=== PATIENT | male | born 1980 | race Two or more races ===

== ENCOUNTER 2024-03-16 20:02 | Inpatient (IN) | payer OTHER, SELFPAY ==
[2024-03-16] VITALS (12 sets, daily range): BP systolic 99–139; BP diastolic 55–72; BMI 26.0; BMI 25.3
--- NOTE | 2024-03-16 17:39 | ED.GENMED ---
History of Present Illness
General
Chief Complaint: Breathing Problem
Source: patient
Time Seen by Provider: 03/16/24 17:15
History of Present Illness
History of Present Illness:
43-year-old male presents to emergency room as a transfer from [facility]. Patient had a open reduction internal fixation of a left index finger fracture. Reportedly the procedure was uncomplicated. The induction of anesthesia
and anesthesia during the procedure was uncomplicated reportedly. Postextubation however the patient was hypoxic. It appears he was treated with nebs without improvement. Patient arrives on 6 L nasal cannula oxygen. The oxygen was briefly
removed to transfer him to the stretcher and he desatted to 82%. Patient states he has no known medical problems. He ran 2 miles yesterday without feeling significant difficulty. Patient denies any chest pain. He had anesthesia once in the past
without any difficulties. Patient denies having any recent fever, chills, cough.
Phy Exam
Physical Exam
Physical Exam:
General: Awake, Alert, Oriented X3. Increased work of breathing
Vitals: Hypoxic, tachypneic
Head: Atraumatic
Eyes: Pupils equal, EOMI
Throat: Airway intact, no exudates
Neck: Trachea midline
Lungs: Diffuse crackles
Heart: Tachycardic regular rate, no murmurs
Abd: Soft, Nontender, No pulsatile mass
Neuro: Nonfocal
Skin: Warm, dry, no rash
Extremities: pulses equal b/l, no edema
Course
Orders/Labs/Results
Orders:
Orders
03/16/24 Dinner
Cholesterol Lowering
At Your Request: Full Participation
Does patient need a safe tray?: No
Cholesterol Lowering: Sodium, 2 Gram
03/16/24 16:39
Chest [CR Chest - 2 Views ] Urgent
Comment:
Reason For Exam: SOB
03/16/24 17:29
Furosemide [Lasix] 40 mg IV NOW STA
03/16/24 17:31
CT Chest W/o Iv Contrast Urgent
Comment:
Reason For Exam: hypoxia, abnormal cxr
03/16/24 17:44
COVID-19 Antigen Urgent
Source: Nasal Swab
Complete Blood Count/No Diff Urgent
Comprehensive Metabolic Panel Urgent
NT-proBNP Urgent
Troponin I Urgent
03/16/24 18:29
Piperacillin/Tazo 4.5 Gram [Zosyn] 4.5 gram in 100 ml IV NOW
03/16/24 19:20
Admit/Transfer Patient As Directed
Co-Sign Provider:
Level of Care: Inpatient admission
Assign to:: IMU- Intermediate Care
Physician / Group: hospitalist
Diagnosis: acute pulmonary edema
Reason for Hospitalization: hypoxic respiratory failure
Expected length of stay greater than two midnights?: Yes
ELOS- Estimated Length of Stay in days: 2
I certify the patient meets the requirements for IP care: Yes
PRN Pain Medication Management As Directed
May give lesser potent ordered pain med per pt: Yes
preference::
Protocol:: Medication orders for pain may be administered in a
manner that supports deferring to patient preference
when the pt is:
- Requesting an ordered lesser potent pain medication.
Least to most potent pain medications are defined
as: acetaminophen < NSAID < tramadol < opioids
(morphine, oxycodone, hydromorphone).
- Requesting a lesser dose of the same medication IF
ORDERED.
- Requesting a less intrusive route of administration
if both routes are prescribed by the provider (PO <
IV).
03/16/24 19:21
Code Status As Directed
Resuscitation Status: Full Code
03/16/24 21:48
Acetaminophen [Tylenol] 650 mg PO Q6HPRN PRN
Guaifenesin/Codeine Solution [Robitussin AC] 10 ml PO Q4HPRN PRN
Ipratropium/Albuterol Sulfate [Duoneb] 3 ml INH R Q4HPRN PRN
Ondansetron Injectable [Zofran] 4 mg IV Q6HPRN PRN
03/16/24 21:48
PULMONARY CONSULT Routine
Consulting Provider: Pedro Marx
Was physician already notified: Yes
Reason for consult: acute pulmonary edema
Activity As Directed
Activity Level: With Assistance
Intake/ Output As Directed
Frequency: Per unit guidelines
Patient Education As Directed
Type: CHF folder
Comment: give on admission. Document in Interdisciplinary Education record
Sleep Apnea Assessment by RN As Directed
Comment:
Physician Instructions:
Vital Signs As Directed
Frequency: Other
Additional Instructions:: Q12 or per unit guidelines if more frequent.
Weight As Directed
Frequency: Daily
Type of Scale: Standing Scale
Comment: Daily morning weight. If unable to stand, use balanced bed scale.
Weight As Directed
Frequency: Once
Type of Scale: Standing Scale
Comment: Upon Admission. If unable to stand, use balanced bed scale.
High Flow Oxygen Therapy [O2 Therapy] [RESP] Routine
High Flow Nasal Cannula FIO2%: 50
High Flow Nasal Cannula Liter Flow: 50
Titrate/Wean O2 to maintain O2 sat greater than (%): 95
Pulse Ox/cont/shift [RESP] Routine
Quantity: 1
Special Instructions: Daily pulse oximetry at rest. If greater than 92% at rest also obtain pulse oximetry
while ambulating as tolerated.
DX Deep Vein Thrombosis Video Routine
03/17/24 00:00
Piperacillin/Tazo 3.375 Gram [Zosyn] 3.375 gram in 50 ml IV Q6H
03/17/24 06:00
Echo 2D MMode Color/Doppler IN AM
Reason for Study: heart failure
Basic Metabolic Panel IN AM
Magnesium IN AM
Procalcitonin IN AM
PCT Algorithmm Indication: Respiratory
03/17/24 08:00
Furosemide [Lasix] 40 mg IV BID AT 0800,1600
03/17/24 18:00
Enoxaparin Sodium [Lovenox] 40 mg SC QPM
03/18/24 06:00
Basic Metabolic Panel IN AM
03/19/24 06:00
Basic Metabolic Panel IN AM
Abnormal Lab Results
03/16/24
17:44
WBC 18.1 H 10^3/uL
(4.8-10.8)
MPV 11.2 H fL
(7.4-10.4)
Carbon Dioxide 15 L mmol/L
(22-30)
Glucose 151 H mg/dl
(70-99)
03/16/24 17:44
03/16/24 17:44
Vital Signs
Initial and Last Documented VS:
Initial Vital Signs
BP
128/65
03/16/24 16:33
Last Documented Vital Signs
Temp Pulse Resp BP Pulse Ox
99.1 F 112 23 114/72 95
03/16/24 22:00 03/16/24 21:00 03/16/24 21:00 03/16/24 21:00 03/16/24 22:01
MDM/Problems Addressed
Differential Diagnosis Includes:
ARDS, fluid overload, neg pressure pulmonary edema, aspiration
MDM/Problems Addressed:
Patient presents with pressure distress after an outpatient operation. Patient is oxygenating with a significant amount of supplemental oxygen. Shortly after arrival patient placed on high flow oxygen. This significantly alleviated his work of
breathing and he is oxygenating very well initially on 60% at 50 L/min. Chest x-ray shows diffuse parenchymal infiltrates which to me suggests a noncardiogenic pulmonary edema. Radiology interpreted the chest x-ray is multifocal pneumonia. A CT
of the chest was performed with a similar interpretation. My suspicion for infection is quite low however as the patient was jogging 2 miles yesterday and went to the surgery center feeling 100% normal. Seems much more likely that this is some
sort of adverse response to anesthesia or the postanesthesia phase. We did cover the patient with a dose of Zosyn in case he did aspirate.
*Radiology
Radiology exam reviewed: preliminary read by ED provider (Diffuse pulmonary infiltrate, no effusion)
*Pulse Oximetry
Patient hypoxic: yes
*EKG
Interpreted by ED Provider?: Yes
Interpretation: abnormal
Heart Rate: 121
Rate: tachycardiac
Rhythm: sinus
[place]: normal axis
Interval: normal interval
QRS Pattern: normal QRS
Ischemia: non-specific ST changes
*[employer] Interpretation
Rate: tachycardiac
Interpretation: abnormal
Rhythm: sinus tachycardia
*Critical Care Note
Total Time (30-74mins, 75-104mins- exclusive of procedures): 40 min
ED Attending Note
-
Portions of this chart may have been created with voice recognition software.� Occasional wrong word or��sound alike� substitutions may have occurred due to the inherent limitations of voice recognition software.
Discharge Plan
Departure
Patient Disposition: Admit
Date of Disposition: 03/16/24
Time of Disposition: 18:32
Admit to: IMU
Presentation/result/management discussed w/ accepting MD/DO: Hospitalist
Condition: Fair
Discharge Problem:
Acute non-cardiogenic pulmonary edema, Respiratory failure
Interventions
Interventions:
*Risk Screen - Suicide Last Done: 03/16/24 16:34
*General Assessment Last Done: 03/16/24 16:34
*Neglect/Abuse Screening Last Done: 03/16/24 16:34
ED- Fall Risk Assessment Last Done: 03/16/24 16:53
*Nursing Disposition Last Done: 03/16/24 21:40
ED- Cardiac Assessment Last Done: 03/16/24 16:53
ED- Pulmonary Assessment Last Done: 03/16/24 16:53
Discharge Date and Time
Discharge Date/Time: 03/16/24 21:42
[2024-03-16] MEDS: LASIX 40 MG IV (17:51)
[2024-03-16 17:56] LABS: Hematocrit 44.5 % (39.0-52.0); Hemoglobin 14.9 g/dL (13.0-18.0); Mean Corp Hgb Conc. 33.5 g/dL (33.0-37.0); Mean Corpuscular Volume 80.8 fL (80.0-94.0); Mean Platelet Volume 11.2 fL (7.4-10.4); Platelet Count 240 10^3/uL (130-400); Red Blood Cell Count 5.51 10^6/uL (4.70-6.10); Red Cell Dist. Width 13.1 % (11.5-14.5); White Blood Cell Count 18.1 10^3/uL (4.8-10.8)
[2024-03-16 18:13] LABS: AST (SGOT) 32 U/L (17-59); Albumin 4.2 g/dl (3.5-5.0); Alkaline Phosphatase 77 U/L (38-126); Blood Urea Nitrogen 13 mg/dl (9-20); Calcium 8.8 mg/dl (8.4-10.2); Carbon Dioxide 15 mmol/L (22-30); Chloride 106 mmol/L (98-107); Estimated Creatinine Clearance 112 ml/min; Glucose 151 mg/dl (70-99); Potassium 4.4 mmol/L (3.5-5.1); Sodium 140 mmol/L (135-145); Total Bilirubin 0.7 mg/dl (0.2-1.3); Total Protein 7.2 g/dl (6.3-8.2); eGFR > 60.00
[2024-03-16 18:20] LABS: NT-proBNP < 20.0 pg/ml; Troponin I < 0.012 ng/ml
[2024-03-16 18:43] LABS: COVID-19 Antigen Negative (Negative)
[2024-03-16] MEDS: ZOSYN 100 IV (18:47)
[2024-03-16 18:49] LABS: ALT (SGPT) 30 U/L (0-50)
--- NOTE | 2024-03-16 19:09 | HPS.HSE ---
Family Physician
-
Family Physician: LINDSAY Hargrove
Chief Complaint
-
Shortness of breath
History of Present Illness
This is a 43-year-old with no known significant past medical history of family history who presents to the Emergency Department with acute pulmonary edema following outpatient surgery.
Patient had a scheduled procedure for a left index metatarsal fracture repair. He was feeling well prior to the procedure. He actually ran about 2 miles the day before without feeling short of breath or having any chest pain. He denied have any
cough fevers or chills prior to this episode. Denies any rash. Denies any recent travels or sick contacts. Patient remembers going into the surgical suite feeling well and then had a report that he had hypoxia to 60 and apneic episode that
required continued ventilatory support. He was successfully extubated to supplemental oxygen and then sent to the emergency department. Patient reports prior episodes of anesthesia without any complication. He also reported that he received a
tyson-procedural antibiotic but was unclear of the form. Has no known abx allergies. Did not notice any rash, wheezing or hypotension.
In the ED he was afebrile he was hemodynamically stable with tachycardic to the 128. Respiratory was 35 with oxygen saturation of 95% on high flow. The mostly unremarkable with a normal BUN/creatinine. White count was 18 rest of the CBC was
unremarkable. Chest x-ray shows diffuse interstitial opacities throughout the lung tapia without pleural effusions. CT of the chest consistent with diffuse bilateral multifocal pneumonia.
Medical History
Past Medical History
Past Medical History: Reports None
Past Surgical History: Reports Orthopedic
Social History
Tobacco: Former Smoker
Alcohol: None
Drug: None
Personal:
Living: With Family
Employment: Employed
Family History
Family History: Not pertinent
Allergies / Home Medications
Allergies reflects when Allergies were last updated in [employer].
Home Medications with original date entered in [employer]
Allergy/Medication List:
Allergies
Allergy/AdvReac Type Severity Reaction Status Date / Time
No Known Allergies Allergy Unverified 03/16/24 16:34
Home Medications
therapeutic multivitamin 1 tab PO DAILY 03/16/24
Review of Systems
-
History Source: Patient
Constitutional: Reports No Symptoms
EENT: Reports No Symptoms
Respiratory: Reports Trouble Breathing
Cardiac: Reports No Symptoms
Abdomen/GI: Reports No Symptoms
: Reports No Symptoms
Musculoskeletal: Reports No Symptoms
Skin: Reports No Symptoms
Neurological: Reports No Symptoms
Endocrine: Reports No Symptoms
Hematologic/Lymphatic: Reports No Symptoms
Psych: Reports No Symptoms
Physical Exam
Vital Signs
Vital Signs
Temp Pulse Resp BP Pulse Ox
98.2 F 118 32 112/65 99
03/16/24 16:50 03/16/24 18:45 03/16/24 18:45 03/16/24 18:30 03/16/24 18:55
Physical Exam
General: Conversant and Respiratory Distress
HEENT: NormoCephalic, Anicteric, Moist mucous membranes, Atraumatic and PERRLA
Respiratory: Clear
Cardiac: S1/S2, Regular Rhythm and Tachycardia
Breast: Deferred by me
GI: Soft, Non Tender, Non Distended and No Hepatosplenomegaly
Rectal: Deferred by Provider
Genito-urinary: Deferred by me
Musculoskeletal: No Clubbing, No Cyanosis and No Edema
Neuro: AO x 3
Hematologic/Lymphatic: No Lymphadenopathy
Psych: Calm
Laboratory Results
-
03/16/24 17:44
03/16/24 17:44
Laboratory Results
Total Bilirubin 0.7 mg/dl (0.2-1.3) 03/16/24 17:44
AST 32 U/L (17-59) 03/16/24 17:44
ALT 30 U/L (0-50) 03/16/24 17:44
Alkaline Phosphatase 77 U/L (38-126) 03/16/24 17:44
Troponin I < 0.012 ng/ml 03/16/24 17:44
Data Reviewed
-
Diagnostic Radiology: Image Personally Visualized and interpreted
CT Scan: Report Reviewed by me
Medical Tests (Nuc Med, Echo, EKG etc): Image Personally Visualized and interpreted
Lab Data: Labs Reviewed by me
Old Records: Reviewed
Impression/Plan
-
IMPRESSION:
This is a 43-year-old male with no known segment past medical history presenting to the emergency department with acute pulmonary edema subsequent to general anesthesia for a orthopedic surgical procedure in the outpatient setting. Patient denies
any prior symptoms prior to presentation. He is otherwise hemodynamically stable, ECG with sinus tachycardia, troponin is negative, BNP is negative, chest x-ray with bilateral interstitial infiltrates throughout the lung tapia, CT chest also
consistent with diffuse bilateral multifocal pneumonia.
PLAN:
Pulmonary Edema/ARDS - Non-cardiogenic pulmonary edema. Possibly Iatrogenic hypervolemic (flash pulm edema from aggressive IVF). BNP is negative. No JVD, peripheral edema or enlarged heart. Possibly secondary to pneumonitis in the setting of
aspiration or or hypersensitivity to anesthesia. Unlikely secondary to antibiotic. The patient has no evidence of 4 heart failure by labs or exam but cannot rule out valvular abnormality. No wheezing or evidence of bronchospasms. Leukocytosis
noted.
- admit to imu
- continue hi - cl 60% at 50 L, titrate to maintain sat > 95 %
- lasix helped significantly in ED, continue with 40mg iv q 12 for now till oxygenation improved to NC or evidence of renal impact
- if no improvement with lasix, will start decadron
- cannot rule out aspiration pneumonitis but unlikely pneumonia, patient recieved zosyn in ED, denies pcn allergies. Will continue prn zosyn. Check procalcitonin
- echo in am, check a1c and lipid panel
- fluid and salt restriction for now.
- supportive care with antitussives, antiemetics and pain control
- pulm consulted
DVT PPX - lovenox sq
Full Code
[2024-03-16] MEDS: TYLENOL 650 MG PO (22:09)
[2024-03-17] VITALS (8 sets, daily range): BP systolic 116–132; BP diastolic 63–82; BMI 25.0
[2024-03-17] MEDS: ZOSYN 50 IV ×5 (00:02→23:06)
[2024-03-17] MEDS: ROXICODONE 5 MG PO ×3 (00:36→10:28)
[2024-03-17 05:51] LABS: Blood Urea Nitrogen 17 mg/dl (9-20); Calcium 8.5 mg/dl (8.4-10.2); Carbon Dioxide 26 mmol/L (22-30); Chloride 101 mmol/L (98-107); Estimated Creatinine Clearance 100 ml/min; Glucose 132 mg/dl (70-99); Magnesium 1.8 mg/dl (1.6-2.3); Sodium 138 mmol/L (135-145); eGFR > 60.00
[2024-03-17 06:11] LABS: Procalcitonin 6.16 ng/ml (0.0-0.25)
--- NOTE | 2024-03-17 06:19 | PTCARENOTE ---
Critical lab received, procalcitonin 6.16. House provider notified via TT.
--- NOTE | 2024-03-17 08:50 | CON.PUL ---
Consultation
Consultation Request
Date/Time Consultation Requested: 03/17/24
Date/Time Consultation Performed: 03/17/24
Performing Provider: Isaias
Reason for Consultation: SOB
Medical History
-
History of Present Illness:
Patient is a 43-year-old male with no significant past history presenting to ER for perioperative hypoxemia and apneic episode requiring ventilatory support. He underwent elective scheduled repair of left index metatarsal fracture, was noted to
have difficulty with oxygenation throughout procedure. He was successfully extubated and placed on supplemental oxygen and then sent to the ER. He denies any prior history of cardiac or pulmonary disease, was in good health prior to the procedure.
In the ER, he was notably tachycardic to 128 with respiratory rate of 35 and placed on high flow nasal cannula. Chest x-ray and CT demonstrating diffuse bilateral infiltrates. He has an white count of 18. Admitted to IMU.
Past Medical History
Past Medical History: None
Past Surgical History: Orthopedic
Social History
Tobacco: Non-smoker
Alcohol: None
Drug: None
Family History
Family History: Reviewed & Not Pertinent
Allergies / Home Medications
Allergies
Allergy/AdvReac Type Severity Reaction Status Date / Time
No Known Allergies Allergy Unverified 03/16/24 16:34
Home Medications
�Medication �Instructions �Recorded �Confirmed �Last Taken �Type
therapeutic multivitamin 1 tab PO DAILY Supplement 03/16/24 03/16/24 Unknown History
Review of Systems
-
History Source: Patient
All other systems: Negative unless noted
Vitals / Labs / Diagnostic Testing
Vital Signs
Temp Pulse Resp BP Pulse Ox
98 F 95 20 121/67 100
03/17/24 07:10 03/17/24 07:30 03/17/24 07:30 03/17/24 04:00 03/17/24 08:15
Lab Data
03/16/24 17:44
03/17/24 05:26
Diagnostic Testing:
Physical Exam
-
HEENT: Normocephalic, Anicteric and Moist Mucous Membranes
Cardiovascular: S1/S2 and Regular Rhythm
Respiratory: Clear and Non-Labored Respirations
GI: Soft, Non Distended and Non Tender
Neurology: Awake, Alert, Oriented, AO x 3 and No Motor Deficits
Skin: Warm, Dry and Good Color
General: Comfortable and Other (NAD)
Assessment
-
Patient is a 43-year-old male with no significant past history presenting to ER for perioperative hypoxemia and apneic episode requiring ventilatory support. He underwent elective scheduled repair of left index metatarsal fracture, was noted to
have difficulty with oxygenation throughout procedure. He was successfully extubated and placed on supplemental oxygen and then sent to the ER. He denies any prior history of cardiac or pulmonary disease, was in good health prior to the procedure.
In the ER, he was notably tachycardic to 128 with respiratory rate of 35 and placed on high flow nasal cannula. Chest x-ray and CT demonstrating diffuse bilateral infiltrates. He has an white count of 18. Admitted to IMU. We are consulted for
eval.
Acute hypoxic respiratory failure on HFNC
Acute bilateral infiltrates
Recent intubation/extubation for elective procedure
Leukocytosis
Elevated procal
Plan
Hypoxemia noted on arrival, O2 monty reportedly in 60s
He was placed on HFNC, this was quickly weaned to midflow 10L, satting 100% can likely be weaned further
Reviewed with RT to wean to off as tolerated
Home O2 eval in AM
Prior history of lung disease is not noted
Nonsmoker, has excellent exercise capacity prior to
No prior PFT for review
CXR/CT obtained indicating diffuse bilateral infiltrates
Suspect patient has acute PNA, possible aspiration through procedure
Given apneas, would complete sleep study as well
Negative pressure pulmonary edema is a possibly diagnostic entity, but proBNP neg, and did not resolve quickly
Given WBC and procal elevation, would favor more PNA
He is placed on empiric abx, continue
Sputum culture if able
Repeat CXR in AM
ECHO results reviewed--normal function
No prior known history of cardiac disease
Will need outpatient pulmonary evaluation in our office for PFTs and 6MWT
Reviewed with patient
Risk factors assessed for underlying sleep disordered breathing also noted, recommend outpatient PSG/sleep evaluation
Updated patient and his family at bedside including cousin on speaker phone (physician)
Family very involved in care, all questions answered
We will follow
Diagnostic Data
Chest X-Ray: 03/16/24- Severe diffuse bilateral interstitial and airspace disease highly suspicious for pneumonia.
CT Scan: CHEST 03/16/24- Severe extensive diffuse bilateral groundglass and tree-in-bud nodules throughout all lobes. Slightly confluent pleural-based consolidation forming in the posterior medial left lower lobe. No pleural effusions, pericardial
effusions or pathologically enlarged noncalcified lymph nodes in the thorax. No pneumothorax.
Echo: 03/17/24- 1. Left ventricle: Normal size and function. The estimated ejection fraction
is 60%. No regional wall motion abnormalities.
2. Right ventricle: Normal
3. Atria: Normal
4. Mitral valve: No mitral regurgitation
5. Aortic valve: Trileaflet. No aortic stenosis or aortic insufficiency
6. Tricuspid valve: Normal
7. No prior studies for comparison
PFT's:
Reports and relevant images were personally reviewed.
Total time spent on this consultation __80__ includes review of history, physical exam, medications, laboratory data, personal review of imaging, extensive review of outpatient records, discussion with care team and respiratory therapy.
[2024-03-17] MEDS: LASIX 40 MG IV ×2 (09:31→17:51)
[2024-03-17] MEDS: TYLENOL 650 MG PO ×2 (12:57→21:16)
--- NOTE | 2024-03-17 14:34 | CM ---
Patient who had outpatient surgery 03/16 for left index metatarsal fracture repair with Dx Pulmonary Edema/ARDS. O2 10L midflow. Receiving IV Lasix, IV Abx. Splint/cast and sling right arm.
Met with patient and Sommer;
The patient has been independent in ADLs and ambulation.
The patient has no DME or prior VN.
PCP - Luann Powell
Pharmacy - [facility]– [place], [place]
Message to Dr Lee; request to clarify wt bearing status and activity restrictions, info relayed to Dr Lee:
Spoke with ; their written d/c instructions from the [facility] with Dr Dario Carias, Ortho:
Call [facility] with any problems ph [phone], return to Surgery Center in 10-14 days for suture removal, avoid heavy lifting & gripping.
Plan home.
--- NOTE | 2024-03-17 15:00 | CM ---
Patient who had outpatient surgery 03/16 for left index metatarsal fracture repair with Dx Pulmonary Edema/ARDS. O2 10L midflow. Receiving IV Lasix, IV Abx. Splint/cast and sling right arm.
Met with patient and Sommer;
the patient resides with his in a 2 story house with 3 [address].
The patient has been independent in ADLs and ambulation.
The patient has no DME or prior VN.
PCP - Luann Powell
Pharmacy - [facility] [address] [place]
Message to Dr Lee; request to clarify wt bearing status and activity restrictions, info relayed to Dr Lee:
Spoke with ; their written d/c instructions from the [facility] with Dr Dario Carias, Ortho:
Call [facility] with any problems ph [phone], return to Surgery Center in 10-14 days for suture removal, avoid heavy lifting & gripping.
Plan home.
--- NOTE | 2024-03-17 16:02 | PTCARENOTE ---
Pt presents as assessed. Aox3. NSR on tele monitor. Surgical dressing C/D/I. Transitioned from HFNC to MFNC by RT. Weaning as tolerated. Medicated for pain as needed, see MAR.
--- NOTE | 2024-03-17 16:09 | W.PN.HOSP.TC ---
Today's Communication/Plan
-
wean higlow
contineu atb
do not believe there is a role for steroids
Assessment / Plan
Assessment / Plan
NAD, resting comfortably in bed
Scleral anicteric
Moist mucous membranes
No JVD
Poor air movement/diminished breath sounds on exam.
Normal S1-S2 no murmurs
Soft nontender nondistended bowel sounds active
No peripheral pitting edema
Moves extremities spontaneously, left and bandaged
AAOx3
Acute hypoxemic respiratory failure suspect secondary pneumonia possibly, may be chemical pneumonitis as seizure, noncardiogenic pulmonary edema, hypersensitivity pneumonitis, unlikely heart failure as proBNP negative.
-White count high procalcitonin acutely hypoxic. Possibly aspiration for which at this time we will continue Zosyn.
-Continue Lasix
-Check sputum culture
-Pulmonary following
-Wean high flow nasal cannula to nasal cannula as tolerated and eventually to room air
Sepsis secondary to diffuse bilateral multifocal PNA
-WBC and HR along with RR
-Pulmonary source
-IVAtb with zosyn for now
-Covid Negative
Anticipated Discharge: Within 24 hours
Subjective/Interval History
-
Date of Service: March 17, 2024
Seen and examined. Was on high flow nasal cannula.
Respiratory rate low 20s high teens. With a SpO2 of 100%
Objective Data
-
Labs:
Laboratory Results
03/17/24
05:26
Sodium 138
Potassium 4.0
Chloride 101
Carbon Dioxide 26
BUN 17
Creatinine 1.0
Glucose 132 H
Calcium 8.5
Vital Signs:
Vital Signs
Temp Pulse Resp BP Pulse Ox
98.1 F 100 20 132/81 98
03/17/24 11:13 03/17/24 16:00 03/17/24 16:00 03/17/24 16:00 03/17/24 16:00
I&O
03/16/24 03/17/24 03/18/24
06:59 06:59 06:59
Intake Total 340 / 340
Output Total 200 / 200 600 / 600
Balance 140 / 140 -600 / -600
[2024-03-17] MEDS: LOVENOX SC (17:56)
--- NOTE | 2024-03-17 23:00 | PTCARENOTE ---
Assume care from AM RN. AAOX3 and anxious at times. at bedside. Pt questions were answer. ST to NSR in the monitor. Pt was wean down to 1.5 L and was advice to start walking and taking deep breaths. Pt appears comfortable in bed. pt sates his
pain is manageable. See MAR for pain management. Call [place] within reach.
[2024-03-18] VITALS (11 sets, daily range): BP systolic 111–129; BP diastolic 63–86; BMI 24.9
[2024-03-18] MEDS: ZOSYN 50 IV ×4 (05:24→23:08)
[2024-03-18 05:31] LABS: Hematocrit 41.1 % (39.0-52.0); Hemoglobin 13.6 g/dL (13.0-18.0); Mean Corp Hgb Conc. 33.1 g/dL (33.0-37.0); Mean Corpuscular Hgb 27.3 pg (27.0-31.0); Mean Corpuscular Volume 82.4 fL (80.0-94.0); Mean Platelet Volume 11.1 fL (7.4-10.4); Platelet Count 216 10^3/uL (130-400); Red Blood Cell Count 4.99 10^6/uL (4.70-6.10); White Blood Cell Count 15.9 10^3/uL (4.8-10.8)
[2024-03-18 05:54] LABS: Blood Urea Nitrogen 23 mg/dl (9-20); Calcium 9.3 mg/dl (8.4-10.2); Carbon Dioxide 27 mmol/L (22-30); Chloride 95 mmol/L (98-107); Estimated Creatinine Clearance 91 ml/min; Glucose 111 mg/dl (70-99); Potassium 3.7 mmol/L (3.5-5.1); Sodium 139 mmol/L (135-145); eGFR > 60.00
[2024-03-18] MEDS: LASIX 40 MG IV ×2 (08:45→15:08)
--- NOTE | 2024-03-18 09:47 | W.PN.PUL3 ---
Today's Communication / Plan
-
ABx
Up OOB as tolerated
Walking pulse oximetry for home O2 assessment prior to discharge
Outpatient follow-up and repeat CT chest in about 4 to 6 weeks with outpatient PFTs and sleep apnea testing
Postoperative management as per orthopedic surgery
Advised to follow-up with PCP as well
Assessment
-
Patient is a 43-year-old male with no significant past history presenting to ER for perioperative hypoxemia and apneic episode requiring ventilatory support. He underwent elective scheduled repair of left index metatarsal fracture, was noted to
have difficulty with oxygenation throughout procedure. He was successfully extubated and placed on supplemental oxygen and then sent to the ER. He denies any prior history of cardiac or pulmonary disease, was in good health prior to the procedure.
In the ER, he was notably tachycardic to 128 with respiratory rate of 35 and placed on high flow nasal cannula. Chest x-ray and CT demonstrating diffuse bilateral infiltrates. He has an white count of 18. Admitted to IMU. We are consulted for
eval.
Impression:
Acute hypoxic respiratory failure on HFNC
Acute bilateral infiltrates likely due to aspiration pneumonia
Recent intubation/extubation for elective procedure involving surgery of left index finger
Leukocytosis
Elevated procal
Plan
Hypoxemia noted on arrival, O2 monty reportedly in 60s
He was placed on HFNC, this was quickly weaned to midflow 10L, satting 100% can likely be weaned further
He is now on room air breathing comfortably
Reviewed with RT to wean to off as tolerated
Home O2 eval prior to discharge
Prior history of lung disease is not noted
Nonsmoker, has excellent exercise capacity prior to
No prior PFT for review
CXR/CT obtained indicating diffuse bilateral infiltrates
Suspect patient has acute PNA, possible aspiration through procedure
Given apneas, would complete sleep study as well; he also snores and endorses daytime naps throughout the day
Negative pressure pulmonary edema is a possibly diagnostic entity, but proBNP neg, and did not resolve quickly
Given WBC and procal elevation, would favor more PNA
He is placed on empiric abx, continue --> currently on zosyn
Sputum culture if able
Repeat CXR this morning (03/18/2024) shows improving pneumonia
ECHO results reviewed--normal function
No prior known history of cardiac disease
Will need outpatient pulmonary evaluation in our office for PFTs and 6MWT
Reviewed with patient
Risk factors assessed for underlying sleep disordered breathing also noted, recommend outpatient PSG/sleep evaluation
Updated patient and his family at bedside including cousin on speaker phone (physician)
Family very involved in care, all questions answered
We will follow
Diagnostic Data
Chest X-Ray: 03/16/24- Severe diffuse bilateral interstitial and airspace disease highly suspicious for pneumonia.
CT Scan: CHEST 03/16/24- Severe extensive diffuse bilateral groundglass and tree-in-bud nodules throughout all lobes. Slightly confluent pleural-based consolidation forming in the posterior medial left lower lobe. No pleural effusions, pericardial
effusions or pathologically enlarged noncalcified lymph nodes in the thorax. No pneumothorax.
Echo: 03/17/24- 1. Left ventricle: Normal size and function. The estimated ejection fraction
is 60%. No regional wall motion abnormalities.
2. Right ventricle: Normal
3. Atria: Normal
4. Mitral valve: No mitral regurgitation
5. Aortic valve: Trileaflet. No aortic stenosis or aortic insufficiency
6. Tricuspid valve: Normal
7. No prior studies for comparison
Reports and relevant images were personally reviewed.
Total time spent today was 35 minutes for this encounter. Time includes reviewing laboratory test/imaging results, reviewing pertinent medical records, obtaining and reviewing medical history, performing an appropriate exam, ordering medications,
tests and procedures. Time also includes documentation of this encounter, coordinating patient care and communicating with other healthcare professionals. Total time does not include separately billed tests performed on this date of service.
Subjective Data
-
Date of Service:
Date of Service: March 18, 2024
Chief Complaint: Pulmonary Follow Up and Pneumonia Follow Up
Subjective:
Patient seen and evaluated today at bedside. He is walking around the unit without significant shortness of breath. Also denies chest pain or cough. He does feel SOB when he takes deep breaths. He is net -1.1 L last 24 hours. He is on room air
breathing comfortably. He denies COBURN, abdominal pain, nausea, vomiting, fevers or chills.
Review of Systems
General: Other (Negative unless mentioned above)
Objective Data
Data Reviewed
Vital Signs / I&O / Oxygen:
Vital Signs
Temp Pulse Resp BP Pulse Ox
98.2 F 103 26 113/75 95
03/18/24 07:04 03/18/24 08:45 03/18/24 06:08 03/18/24 08:45 03/18/24 06:10
Intake and Output
03/17/24 03/18/24 03/19/24
06:59 06:59 06:59
Intake Total 340 / 340 820 / 820
Output Total 200 / 200 1950 / 1950 350 / 350
Balance 140 / 140 -1130 / -1130 -350 / -350
SaO2 95
Nasal Cannula flow liters per 1
minute
Physical Exam
General: Respiratory Distress (negative), Comfortable, Chills (negative) and Sweats (negative)
HEENT: Normocephalic and Anicteric
Cardiovascular: S1-S2 and Peripheral Edema (negative)
Respiratory: Wheeze (negative), Crackles (Upper lobes bilaterally), Rhonchi (negative) and Accessory Resp Muscle Use (negative)
GI: Soft, Non Distended, Non Tender and Normal Bowel Sounds
Neurology: AO x 3 and Tremors (negative)
Skin: Warm, Dry and Jaundice (negative)
Labs/Micro/Reports
Lab Data
03/18/24 05:19
03/18/24 05:19
--- NOTE | 2024-03-18 14:05 | W.PN.HOSP.TC ---
Today's Communication/Plan
-
Continue IV Lasix
Continue IV antibiotics
Monitor oxygen
Ambulate as tolerated assess O2.
Assessment / Plan
Assessment / Plan
NAD, comfortable in bedside chair, breathing room air
Scleral anicteric
Moist mucous membranes
No JVD
Diminished breath sounds on exam
Normal S1-S2 no murmurs
Soft nontender nondistended bowel sounds active
No peripheral pitting edema
Moves extremities spontaneously, left and bandaged
AAOx3
Acute hypoxemic respiratory failure suspect secondary pneumonia possibly, may be chemical pneumonitis as seizure, noncardiogenic pulmonary edema, hypersensitivity pneumonitis, unlikely heart failure as proBNP negative.
-White count high procalcitonin acutely hypoxic. Possibly aspiration for which at this time we will continue Zosyn. Would plan to continue antibiotics x 5 days. If oxygen saturation continues to improve and without hypoxia on ambulation then can
transition to p.o. Augmentin and discharged home.
-Continue Lasix, till we start seeing a bump in creatinine
-Check sputum culture, have not obtained as of yet
-Pulmonary following
-Wean high flow nasal cannula to nasal cannula as tolerated and eventually to room air
Sepsis secondary to diffuse bilateral multifocal PNA
-WBC and HR along with RR
-Pulmonary source
-IVAtb with zosyn for now
-Covid Negative
Anticipated Discharge: 24 - 48 hours
Subjective/Interval History
-
Date of Service: March 18, 2024
Seen and examined. No new complaints. No acute overnight events.
Sitting in bedside chair breathing room air
Spoke with bedside nurse lowest O2 saturation while walking to the bathroom 88%
No chest discomfort
Overall feeling better
Objective Data
-
Labs:
Laboratory Results
03/18/24
05:19
WBC 15.9 H
Hgb 13.6
Hct 41.1
Plt Count 216
Sodium 139
Potassium 3.7
Chloride 95 L
Carbon Dioxide 27
BUN 23 H
Creatinine 1.1
Glucose 111 H
Calcium 9.3
Vital Signs:
Vital Signs
Temp Pulse Resp BP Pulse Ox
98.2 F 103 26 113/75 93
03/18/24 07:04 03/18/24 08:45 03/18/24 06:08 03/18/24 08:45 03/18/24 10:04
I&O
03/17/24 03/18/24 03/19/24
06:59 06:59 06:59
Intake Total 340 / 340 820 / 820
Output Total 200 / 200 1950 / 1950 350 / 350
Balance 140 / 140 -1130 / -1130 -350 / -350
--- NOTE | 2024-03-18 16:26 | PTCARENOTE ---
Pt about to walk IMU unit on room air without SOB or labored breathing and SpO2 ~ 92-95%; HR ~ 100-120 during ambulation. Assisted back to room, no issues. Will continue to monitor and assess.
[2024-03-18] MEDS: LOVENOX 40 MG SC (17:24)
[2024-03-19] MEDS: ZOSYN 50 IV ×2 (05:54→11:47)
[2024-03-19 05:56] VITALS: BMI 24.5
[2024-03-19 06:27] LABS: Hematocrit 39.9 % (39.0-52.0); Hemoglobin 13.7 g/dL (13.0-18.0); Mean Corp Hgb Conc. 34.3 g/dL (33.0-37.0); Mean Corpuscular Hgb 27.9 pg (27.0-31.0); Mean Corpuscular Volume 81.3 fL (80.0-94.0); Mean Platelet Volume 11.1 fL (7.4-10.4); Platelet Count 226 10^3/uL (130-400); Red Blood Cell Count 4.91 10^6/uL (4.70-6.10); Red Cell Dist. Width 12.6 % (11.5-14.5); White Blood Cell Count 11.6 10^3/uL (4.8-10.8)
[2024-03-19 06:54] LABS: Blood Urea Nitrogen 24 mg/dl (9-20); Calcium 9.6 mg/dl (8.4-10.2); Carbon Dioxide 31 mmol/L (22-30); Chloride 92 mmol/L (98-107); Estimated Creatinine Clearance 100 ml/min; Glucose 111 mg/dl (70-99); Potassium 3.4 mmol/L (3.5-5.1); Sodium 137 mmol/L (135-145); eGFR > 60.00
[2024-03-19] MEDS: LASIX 40 MG IV (07:59)
[2024-03-19 08:01] VITALS: BP 101/65
--- NOTE | 2024-03-19 09:44 | W.PN.PUL3 ---
Today's Communication / Plan
-
ABx - finish 7 day course with augmentin
Up OOB as tolerated
Walking pulse oximetry performed today showed he does not need home oxygen
Outpatient follow-up and repeat CT chest in approximately 4 to 6 weeks with outpatient PFTs and sleep apnea testing
Postoperative management as per orthopedic surgery
Advised to follow-up with PCP as well
Patient being prepared for discharge home today. We will arrange for outpatient office follow-up. Pulmonary service will now sign off. Please reconsult if there are any additional questions/concerns, or if patient's respiratory status
deteriorates.
Assessment
-
Patient is a 43-year-old male with no significant past history presenting to ER for perioperative hypoxemia and apneic episode requiring ventilatory support. He underwent elective scheduled repair of left index metatarsal fracture, was noted to
have difficulty with oxygenation throughout procedure. He was successfully extubated and placed on supplemental oxygen and then sent to the ER. He denies any prior history of cardiac or pulmonary disease, was in good health prior to the procedure.
In the ER, he was notably tachycardic to 128 with respiratory rate of 35 and placed on high flow nasal cannula. Chest x-ray and CT demonstrating diffuse bilateral infiltrates. He has an white count of 18. Admitted to IMU. We are consulted for
eval.
Impression:
Acute hypoxic respiratory failure requiring HFNC --> now on room air
Acute bilateral infiltrates likely due to aspiration pneumonia
Recent intubation/extubation for elective procedure involving surgery of left index finger
Leukocytosis
Elevated procal
Plan
Hypoxemia noted on arrival, O2 monty reportedly in 60s
He was placed on HFNC, this was quickly weaned to midflow 10L, satting 100% can likely be weaned further
He is now on room air breathing comfortably
Reviewed with RT to wean to off as tolerated
Home O2 eval prior to discharge --> performed today with monty SpO2 96% after walking 250 feet. Patient denied dyspnea during testing. No need for home oxygen.
Prior history of lung disease is not noted
Nonsmoker, has excellent exercise capacity prior to
No prior PFT for review
CXR/CT obtained indicating diffuse bilateral infiltrates
Suspect patient has acute PNA, possible aspiration through procedure
Given apneas, would complete sleep study as well; he also snores and endorses daytime naps throughout the day
Negative pressure pulmonary edema is a possibly diagnostic entity, but proBNP neg, and did not resolve quickly
Given WBC and procal elevation, would favor more PNA
He is placed on empiric abx, continue --> currently on zosyn
- Finish a 7-day course of antibiotics with PO Augmentin
Sputum culture if able
Repeat CXR on AM of 03/18/2024 shows improving pneumonia
ECHO results reviewed--normal function
No prior known history of cardiac disease
Will need outpatient pulmonary evaluation in our office for PFTs and 6MWT
Reviewed with patient
Risk factors assessed for underlying sleep disordered breathing also noted, recommend outpatient PSG/sleep evaluation
Dr. Lawson Updated patient and his family at bedside including cousin on speaker phone (physician)
I answered all the patient's questions to his satisfaction.
Family very involved in care, all questions answered
Patient being prepared for discharge home today. We will arrange for outpatient office follow-up. He will need repeat imaging in about 4 to [address] chest without contrast. Pulmonary service will now sign off. Thank you for allowing us to
be involved in the care of this patient. Please reconsult if there are any additional questions/concerns, or if patient's respiratory status deteriorates.
Diagnostic Data
Chest X-Ray: 03/16/24- Severe diffuse bilateral interstitial and airspace disease highly suspicious for pneumonia.
CT Scan: CHEST 03/16/24- Severe extensive diffuse bilateral groundglass and tree-in-bud nodules throughout all lobes. Slightly confluent pleural-based consolidation forming in the posterior medial left lower lobe. No pleural effusions, pericardial
effusions or pathologically enlarged noncalcified lymph nodes in the thorax. No pneumothorax.
Echo: 03/17/24- 1. Left ventricle: Normal size and function. The estimated ejection fraction
is 60%. No regional wall motion abnormalities.
2. Right ventricle: Normal
3. Atria: Normal
4. Mitral valve: No mitral regurgitation
5. Aortic valve: Trileaflet. No aortic stenosis or aortic insufficiency
6. Tricuspid valve: Normal
7. No prior studies for comparison
Reports and relevant images were personally reviewed.
Total time spent today was 25 minutes for this encounter. Time includes reviewing laboratory test/imaging results, reviewing pertinent medical records, obtaining and reviewing medical history, performing an appropriate exam, ordering medications,
tests and procedures. Time also includes documentation of this encounter, coordinating patient care and communicating with other healthcare professionals. Total time does not include separately billed tests performed on this date of service.
Subjective Data
-
Date of Service:
Date of Service: March 19, 2024
Chief Complaint: Pulmonary Follow Up and Pneumonia Follow Up
Subjective:
Patient was seen and evaluated today at bedside. Afebrile overnight. Ambulatory pulse oximetry performed today with monty SpO2 96%, and he walked total of 250 feet. Patient had no complaints of dyspnea during testing. He is being prepared for
discharge home today. Denies COBURN, chest pain, abdominal pain, nausea, fevers or chills.
Review of Systems
General: Other (Negative unless mentioned above)
Objective Data
Data Reviewed
Vital Signs / I&O / Oxygen:
Vital Signs
Temp Pulse Resp BP Pulse Ox
98.4 F 82 24 101/65 98
03/19/24 07:32 03/19/24 07:59 03/18/24 18:00 03/19/24 07:59 03/19/24 08:31
Intake and Output
03/18/24 03/19/24 03/20/24
06:59 06:59 06:59
Intake Total 820 / 820 460 / 460
Output Total 1950 / 1950 950 / 950
Balance -1130 / -1130 -490 / -490
SaO2 98
Nasal Cannula flow liters per 1
minute
Physical Exam
General: Respiratory Distress (negative), Comfortable, Chills (negative) and Sweats (negative)
HEENT: Normocephalic and Anicteric
Cardiovascular: S1-S2 and Peripheral Edema (negative)
Respiratory: Wheeze (negative), Crackles (Upper lobes bilaterally), Rhonchi (negative) and Accessory Resp Muscle Use (negative)
GI: Soft, Non Distended, Non Tender and Normal Bowel Sounds
Neurology: AO x 3 and Tremors (negative)
Skin: Warm, Dry and Jaundice (negative)
Labs/Micro/Reports
Lab Data
03/19/24 05:53
03/19/24 05:53
--- NOTE | 2024-03-19 10:47 | W.PN.HOSP.TC ---
Today's Communication/Plan
-
DC home
PO antibioitics x4days
Repeat chest ct in 608weeks
Outpatient pulm and sleep medicine follow up
Outptatient Ortho follow up
Assessment / Plan
Assessment / Plan
NAD, comfortable in bedside chair, breathing room air
Scleral anicteric
Moist mucous membranes
No JVD
Diminished breath sounds on exam
Normal S1-S2 no murmurs
Soft nontender nondistended bowel sounds active
No peripheral pitting edema
Moves extremities spontaneously, left and bandaged
AAOx3
Acute hypoxemic respiratory failure suspect secondary pneumonia possibly, may be chemical pneumonitis as seizure, noncardiogenic pulmonary edema, hypersensitivity pneumonitis, unlikely heart failure as proBNP negative.
-White count high procalcitonin acutely hypoxic. Possibly aspiration for which at this time we will continue Zosyn. Would plan to continue antibiotics x 5 days. If oxygen saturation continues to improve and without hypoxia on ambulation then can
transition to p.o. Augmentin and discharged home.
-Continue Lasix, till we start seeing a bump in creatinine
-Check sputum culture, have not obtained as of yet
-Pulmonary following
-Wean high flow nasal cannula to nasal cannula as tolerated and eventually to room air
Sepsis secondary to diffuse bilateral multifocal PNA
-WBC and HR along with RR
-Pulmonary source
-IVAtb with zosyn for now, discussed with Pulm, will transition to PO Atb with Augmentin for additional 4more days
-Covid Negative
Anticipated Discharge: Today
Subjective/Interval History
-
Date of Service: March 19, 2024
Seen and examined. No new complaints. No acute overnight events.
Feeling significantly better.
Per bedside nurse has been walking aroung the floor. Maintaining o2 sats of 95%.
Objective Data
-
Labs:
Laboratory Results
03/19/24
05:53
WBC 11.6 H
Hgb 13.7
Hct 39.9
Plt Count 226
Sodium 137
Potassium 3.4 L
Chloride 92 L
Carbon Dioxide 31 H
BUN 24 H
Creatinine 1.0
Glucose 111 H
Calcium 9.6
Vital Signs:
Vital Signs
Temp Pulse Resp BP Pulse Ox
98.4 F 82 24 101/65 98
03/19/24 07:32 03/19/24 07:59 03/18/24 18:00 03/19/24 07:59 03/19/24 08:31
I&O
03/18/24 03/19/24 03/20/24
06:59 06:59 06:59
Intake Total 820 / 820 460 / 460
Output Total 1950 / 1950 950 / 950
Balance -1130 / -1130 -490 / -490
--- NOTE | 2024-03-19 10:55 | W.DCSUMMARY ---
Discharge Summary
Discharge Data
Date of Admission: 03/16/24
Date of Discharge: 03/19/24
-
Pending Results: No
Hospital Course
43M no hx presented from surgery center after being found to have low oxygen saturations of 60% once extubated. Started on high flow nasal cannula IV antibiotics. CT and x-ray of chest demonstrating multifocal pneumonia and fluid/pulmonary edema.
Started on IV antibiotics provided also IV Lasix. Eventually was able to wean off of high flow nasal cannula to nasal cannula oxygen and now on room air. Evaluated by pulmonary that agreed with this is likely aspiration pneumonia. Will need to
complete antibiotics for total 7-day course which includes 3 days of antibiotics received (receive Zosyn in hospital, DC home with Augmentin) therefore still has 4 more days left.
Will need repeat chest ct in 6-8weeks.
Additionally will need to follow-up with outpatient sleep medicine and pulmonary medicine for pulmonary function test and sleep study.
Please follow up with PCP.
[facility]
CXR
IMPRESSION:
Severe diffuse bilateral interstitial and airspace disease highly suspicious for pneumonia.
CT Chest
IMPRESSION:
1. Severe diffuse bilateral multifocal pneumonia throughout all lobes. Recommend imaging follow-up to resolution.
CXR
IMPRESSION:
Improving pneumonia.
Discharge Plan
-
Patient Disposition: Home (Routine Discharge)
Discharge Diagnosis/Procedures: Acute hypoxemic respiratory failure
Aspiration pneumonia
Diet: As tolerated
Activity: As tolerated
Driving Restrictions: As prior to admission
Activity Restrictions/Additional Instructions:
Presented from surgery center after being found to have low oxygen saturations of 60% once extubated. Started on high flow nasal cannula IV antibiotics. CT and x-ray of chest demonstrating multifocal pneumonia and fluid/pulmonary edema. Started
on IV antibiotics provided also IV Lasix. Eventually was able to wean off of high flow nasal cannula to nasal cannula oxygen and now on room air. Evaluated by pulmonary that agreed with this is likely aspiration pneumonia. Will need to complete
antibiotics for total 7-day course which includes 3 days of antibiotics received (receive Zosyn in hospital, DC home with Augmentin) therefore still has 4 more days left.
Will need repeat chest ct in 6-8weeks.
Additionally will need to follow-up with outpatient sleep medicine and pulmonary medicine for pulmonary function test and sleep study.
Please follow up with PCP.
Follow up with [facility] for rencent left index finger surgery
CXR
IMPRESSION:
Severe diffuse bilateral interstitial and airspace disease highly suspicious for pneumonia.
CT Chest
IMPRESSION:
1. Severe diffuse bilateral multifocal pneumonia throughout all lobes. Recommend imaging follow-up to resolution.
CXR
IMPRESSION:
Improving pneumonia.
Instructions: Aspiration pneumonia
Referrals:
Pedro Marx MD [Active] - in two to four weeks (full PFTs on day of office visit)
Luann Powell CRNP [Family Provider] -
Prescriptions:
New
amoxicillin-pot clavulanate [Augmentin] 500-125 mg tablet
1 tab PO BID 4 Days Qty: 8 0RF
albuterol sulfate 90 mcg/actuation HFA aerosol inhaler
2 puff inhalation Q6H PRN (Reason: shortness of breath or wheezing) Qty: 6.7 0RF
Held
therapeutic multivitamin Tablet
1 tab PO DAILY
Hold Instructions: Resume on 04/04/24. once seen by pcp
Discharge Orders:
Discharge Patient (As Directed); Ordered 03/19/24
Ordered By: Femi Lee
Discharge Date and Time
Print Language: [place]
--- NOTE | 2024-03-19 11:56 | PTCARENOTE ---
Discharge instructions reviewed with Pt, all questions answered; IV removed and Pt assisted to pickup area via wheelchair.
== END 2024-03-19 11:52 | disposition home or self-care (01) | DRG 177 ==
LOC: IMU 20:02
PROVIDERS: ADMITTING PHYSICIAN Internal Medicine; ATTENDING PHYSICIAN Hospitalist; EMERGENCY PHYSICIAN Emergency Medicine; FAMILY PHYSICIAN Nurse Practitioner Primary Care; OTHER PHYSICIAN Internal Medicine
PROC: 5A0935A Assistance with Respiratory Ventilation, Less than 24 Consecutive Hours, High Flow/Velocity Cannula (ICD-10-PCS; 2024-03-16)
DX: J69.0 Pneumonitis due to inhalation of food and vomit (principal); J96.01 Acute respiratory failure with hypoxia; S92.322D Displaced fracture of second metatarsal bone, left foot, subsequent encounter for fracture with routine healing; Z98.890 Other specified postprocedural states; Z87.891 Personal history of nicotine dependence
CPT/HCPCS: 71046; 71250; 80048; 80053; 83735; 83880; 84145; 84484; 85027; 87811; 93005; 93306; 96365; 96375; 99291